=== PATIENT | male | born 1950 | race Caucasian/White ===

== ENCOUNTER 2017-08-14 08:54 | Day surgery (SDC) | payer MEDICARE ==
[~2017-08-14 08:54] MED LIST: Lactated Ringers 1,000 ML IV SCH; Sodium Chloride 0.9% 5 ML Syringe FLUSH PRN
[2017-08-14] MEDS ORDERED: Sodium Chloride 0.9% 5 ML Syringe FLUSH PRN (09:00)
[2017-08-14] MEDS ORDERED: Lactated Ringers 1,000 ML IV SCH (09:00)
[2017-08-14] MEDS ORDERED: Propofol 200 MG/20 ML SDV ONE (09:29)
[2017-08-14] MEDS ORDERED: Albuterol/Ipratropium 3.0-0.5 MG/3 ML Neb Soln NEB ONE (10:19)
--- NOTE | 2017-08-14 10:25 | PCM.PN ---
- General Info Date of Service: 08/14/17 - Review of Systems Systems Review Comment:: 66-year-old male with history of upper abdominal pain referred for EGD. He states he has a several year history of nausea and poor appetite. Workup to date has not revealed any cause for his symptoms. He has had previous cholecystectomy and multiple colonoscopies. I have discussed the proposed upper endoscopy with the patient. He is medically stable to proceed today with no recent significant changes in his health status compared to his history and physical. He agrees to proceed accepting risks. - Patient Data Vitals - Most Recent: Last Vital Signs Temp 98.5 F 08/14/17 09:23 Pulse 68 08/14/17 09:23 Resp 16 08/14/17 09:23 BP 152/85 H 08/14/17 09:23 Pulse Ox 97 08/14/17 09:23 Weight - Most Recent: 65.771 kg Med Orders - Current: Current Medications Lactated Ringer's (Ringers, Lactated) 1,000 mls @ 50 mls/hr IV ASDIRECTED KARISHMA Last Admin: 08/14/17 09:36 Dose: 50 mls/hr Sodium Chloride (Syrex Flush) 5 ml FLUSH Q8HR PRN PRN Reason: Keep Vein Open Discontinued Medications Albuterol/Ipratropium (Duoneb 3.0-0.5 Mg/3 Ml) 3 ml NEB ONETIME ONE Stop: 08/14/17 10:20 Last Admin: 08/14/17 10:22 Dose: 3 ml Lactated Ringer's (Ringers, Lactated) 1,000 mls @ 50 mls/hr IV ASDIRECTED KARISHMA Sodium Chloride (Syrex Flush) 5 ml FLUSH Q8HR PRN PRN Reason: Keep Vein Open - Problem List Review Problem List Initiated/Reviewed/Updated: Yes - My Orders Last 24 Hours: My Active Orders 08/14/17 09:00 Patient to Empty Bladder [RC] ASDIRECTED Peripheral IV Care [RC] . DIRECTED Verify Patient Consent Obtain [RC] ASDIRECTED Lactated Ringers [Ringers, Lactated] 1,000 ml IV ASDIRECTED Sodium Chloride 0.9% [Syrex Flush] 5 ml FLUSH Q8HR PRN Peripheral IV Insertion Adult [OM.PC] Routine 08/14/17 Breakfast Nothing Per Oral Diet [DIET] - Assessment Assessment:: Upper abdominal pain - Plan Plan:: EGD
[2017-08-14] MEDS ORDERED: Propofol 200 MG/20 ML SDV IV ONE (10:32)
[2017-08-14] MEDS ORDERED: Glycopyrrolate 0.2 MG/ML 5 ML MDV IV ONE (10:32)
--- NOTE | 2017-08-14 11:02 | PCM.OPNOTE ---
- General Post-Op/Procedure Note Date of Surgery/Procedure: 08/14/17 Operative Procedure(s): EGD with biopsy Findings: Irregularity of the GE junction suggestive of reflux esophagitis Small hiatal hernia Structures otherwise look normal Pre Op Diagnosis: Upper abdominal pain Post-Op Diagnosis: Hiatal hernia. Reflux esophagitis Anesthesia Technique: MAC Primary Surgeon: Toño Ware Pathology: Biopsies of duodenum, gastric antrum, proximal stomach, and GE junction Output, Urine Amount: 0 EBL in mLs: 3 Complications: None Condition: Good
--- NOTE | 2017-08-14 22:23 | OR ---
DATE OF SURGERY: 08/14/2017 SURGEON: Toño Ware MD PREOPERATIVE DIAGNOSIS: Epigastric pain. POSTOPERATIVE DIAGNOSIS: Hiatal hernia with reflux esophagitis. OPERATION PERFORMED: Esophagogastroduodenoscopy with biopsy. INDICATIONS FOR SURGERY: This 66-year-old male has a several year history of upper abdominal pain and nausea. Diagnostic upper endoscopy is planned. FINDINGS: No acute inflammation is seen. The patient has a small hiatal hernia extending from approximately the 39 cm to 36 cm level. The Z-line at the 36 cm level is slightly irregular suggestive of chronic reflux esophagitis, but there is no exudate or acute inflammation seen. The remainder of the stomach and duodenal bulb appeared normal. PROCEDURE: The patient was taken to the operating room. He was given intravenous sedation and his throat was topically anesthetized. With him in the left lateral decubitus position, the esophagus was intubated via a teeth protector. The esophagus was intubated under direct visualization. The scope was then carefully advanced through the esophagus, stomach, and into the duodenum where examination to the third portion was performed. Random biopsies of the duodenum were taken. Full examination of the duodenum was performed and then the scope was withdrawn back into the stomach where complete examination including retroflexed examination of the fundus was performed. Because of the patient's symptoms, biopsies are taken randomly of the antrum as well as the proximal stomach. There was some irregularity at the GE junction, and so this area was also biopsied to evaluate for reflux esophagitis or possibly even Ybarra's esophagus. After the biopsies had been completed and with no sign of any complication, the scope was removed and the patient was taken from the operating room in satisfactory condition. ESTIMATED BLOOD LOSS: 3 mL. COMPLICATIONS: None. PROGNOSIS: Good. /[id number]/MODL
== END 2017-08-14 12:05 | disposition home or self-care (01) ==
LOC: KA.SDS 08:54
PROVIDERS: ATTEND Surgery
DX: K29.50 Unspecified chronic gastritis without bleeding (principal); K20.9 Esophagitis, unspecified; K44.9 Diaphragmatic hernia without obstruction or gangrene; I10 Essential (primary) hypertension; Z79.899 Other long term (current) drug therapy; F17.200 Nicotine dependence, unspecified, uncomplicated
CPT/HCPCS: 00731; 88305; 94640; J2704; J3490; J7120